=== PATIENT | female | born 1985 | race Caucasian/White ===

== ENCOUNTER → 2017-01-09 | Outpatient (CLI) | payer BC ==
--- NOTE | 2017-01-09 09:18 | DIAGNOSTIC IMAGING REPORT ---
BILIARY ULTRASOUND CLINICAL HISTORY: Right upper quadrant abdominal pain COMPARISON STUDY: No previous studies for comparison. FINDINGS: The pancreas appears sonographically normal. The liver appears sonographically normal. The gallbladder appears sonographically normal. There is no ductal dilatation. The common bile duct measures 4 mm. There is no right-sided hydronephrosis. IMPRESSION: Normal biliary ultrasound. Electronically signed by: Luis Carlos Pham M.D. 01/09/2017 9:16 AM Dictated Date/Time: 01/09/2017 9:15 AM
== END | disposition home or self-care (01) ==
LOC: C.ULTR 08:32
PROVIDERS: ATTEND Family Medicine
DX: R10.11 Right upper quadrant pain (principal)

== ENCOUNTER → 2017-06-17 | Outpatient (CLI) | payer BC ==
--- NOTE | 2017-06-17 15:35 | DIAGNOSTIC IMAGING REPORT ---
ABDOMEN LIMITED (US) CLINICAL HISTORY: 32 years-old Female presenting with RIGHT LOWER QUADRANT PAIN. TECHNIQUE: Real-time grayscale and limited color Doppler ultrasound imaging of the right lower quadrant was performed to evaluate the appendix. COMPARISON: None. FINDINGS: Appendix not visualized. No free fluid or hyperechogenic fat to suggest secondary signs of inflammation. IMPRESSION: Appendix not visualized, although no secondary signs of inflammation. This does not exclude the diagnosis of appendicitis. Electronically signed by: Riley Whitmore M.D. 06/17/2017 3:34 PM Dictated Date/Time: 06/17/2017 3:33 PM
== END | disposition home or self-care (01) ==
LOC: C.ULTR 15:11
PROVIDERS: ATTEND Family Medicine
DX: R10.31 Right lower quadrant pain (principal)

== ENCOUNTER → 2017-06-17 | Outpatient (CLI) | payer BC ==
[~2017-06-17] MED LIST: OPTIRAY 320 IV PRN
--- NOTE | 2017-06-17 20:15 | DIAGNOSTIC IMAGING REPORT ---
ABD/PELVIS IV AND ORAL CONT CT DOSE: 525.27 mGy.cm HISTORY: Right flank pain RLQ PAIN TECHNIQUE: Multiaxial CT images of the abdomen and pelvis were performed following the use of intravenous and oral contrast. COMPARISON STUDY: None. FINDINGS: The lung bases are clear. The liver, spleen, gallbladder, pancreas, kidneys, and adrenal glands are within normal limits. No bowel wall thickening or obstruction. The pelvic organs are unremarkable. No suspicious lytic or blastic osseous lesions. The appendix is normal. Nonobstructive bowel pattern. No free fluid within the pelvic cul-de-sac. IMPRESSION: No significant abnormality identified within the abdomen or pelvis. The above report was generated using voice recognition software. It may contain grammatical, syntax or spelling errors. Electronically signed by: Raúl Valencia M.D. 06/17/2017 8:05 PM Dictated Date/Time: 06/17/2017 8:03 PM
== END | disposition home or self-care (01) ==
LOC: C.CTS 17:25
PROVIDERS: ATTEND Family Medicine
DX: R10.31 Right lower quadrant pain (principal)

== ENCOUNTER 2018-04-17 20:35 | Emergency (ER) | payer BC, OTHER ==
[~2018-04-17] VITALS: Ht 160 cm; Wt 79.6 kg
[2018-04-17 20:51] VITALS: TEMP 36.8; Ht 160 cm; Wt 79.6 kg
[2018-04-17 21:18] LABS: BASO % 0.3 %; BASO ABS # 0.02 K/uL (0-0.2); EOS % 1.1 %; EOS ABS # 0.08 K/uL (0-0.5); HEMATOCRIT 40.6 % (37-47); HEMOGLOBIN 13.6 g/dL (12.0-16.0); IG# 0.02 K/uL (0.00-0.02); LYMPH % 43.4 %; LYMPH ABS # 3.24 K/uL (1.2-3.4); MEAN CELL VOLUME 87.3 fL (80-100); MEAN CORPUSCULAR HEMOGLOBIN 29.2 pg (25-34); MEAN CORPUSCULAR HGB CONC 33.5 g/dl (32-36); MEAN PLATELET VOLUME 10.9 fL (7.4-10.4); MONO ABS # 0.37 K/uL (0.11-0.59); NEUT % 49.9 %; NEUT ABS # 3.74 K/uL (1.4-6.5); PLATELET COUNT 257 K/uL (130-400); RED CELL DISTRIBUTION WIDTH CV 13.4 % (11.5-14.5); RED CELL DISTRIBUTION WIDTH SD 42.8 fL (36.4-46.3); WHITE BLOOD COUNT 7.47 K/uL (4.8-10.8)
[2018-04-17 21:41] LABS: ALBUMIN 3.5 gm/dl (3.4-5.0); CALCIUM 8.2 mg/dl (8.5-10.1); CREATININE 0.83 mg/dl (0.60-1.20); POTASSIUM 3.6 mmol/L (3.5-5.1)
[2018-04-17 21:46] LABS: TOTAL PROTEIN 7.4 gm/dl (6.4-8.2)
--- NOTE | 2018-04-17 22:01 | DIAGNOSTIC IMAGING REPORT ---
EXAMINATION: PELVIC ULTRASOUND (transabdominal and endovaginal scanning) CLINICAL HISTORY: RLQ pain COMPARISON STUDY: CT scan dated 06/17/2017 FINDINGS: The uterus measured 6.6 x 3.3 x 4.1 cm. The endometrial stripe measured 5 mm. The right ovary measured 23 x 22 x 22 mm. The left ovary measured 25 x 16 x 21 mm. There is no ultrasonographic evidence of ovarian torsion. It should be noted that ovarian torsion can be present with normal Doppler ultrasonographic findings. There was no evidence of pathologic free pelvic fluid. IMPRESSION: Normal pelvic ultrasound. Electronically signed by: Luis Carlos Pham M.D. 04/17/2018 10:00 PM Dictated Date/Time: 04/17/2018 9:59 PM
[2018-04-17 22:25] VITALS: BP 125/79; PULSE 65; O2SAT 98
--- NOTE | 2018-04-17 22:26 | EMERGENCY ROOM VISIT NOTE ---
History First contact with patient: 20:50 Chief Complaint: ABDOMINAL PAIN Stated Complaint: RIGHT LOWER AB AND BACK PAIN Nursing Triage Summary: Pt complains of right lower abdominal pain and diarrhea. History of Present Illness The patient is a 32 year old female who presents to the Emergency Room with complaints of abdominal pain. The patient reports that 2 nights ago, she was sitting at home and had 3 severe, sharp pains in her right lower abdomen. She states that the pain improved at that time. She states that today while she was eating dinner, she had a similar episode. She states that again, she had 3 sharp pains in her right lower abdomen. She has had a few intermittent pain since then. She reports the pain lasts for a few seconds at a time. There is no constant pain. The patient does note she is slightly gassy today and has been burping more than usual. This started after she was at an [place] wedding and has spicy [place] food for dinner. She states she has had loose stools this entire week. She states that when she has the abdominal pain, she rates it a 7- 8/10. Her last menstrual period was approximately 11 days ago. Her menstrual periods are typically regular. She reports she is currently trying to get . She did have a pelvic ultrasound a few months ago because she is having difficulty getting . She denies history of abdominal surgeries. She denies any urinary symptoms, nausea/vomiting, blood in her stools or fevers. Review of Systems A complete 10 point review of systems was reviewed with the patient with pertinent positives and negatives as per history of present illness. All else were negative. Past Medical/Surgical History Medical Problems: (1) No significant active problems Surgical Problems: (1) No significant past surgical history Social History Smoking Status: Never Smoker Marital Status: Housing Status: lives with family Physical Exam Vital Signs Date Time Temp Pulse Resp B/P (MAP) Pulse Ox O2 Delivery O2 Flow Rate FiO2 04/17/18 22:25 65 16 125/79 98 Room Air 04/17/18 21:57 70 16 113/79 98 Room Air 04/17/18 20:51 36.8 76 20 143/90 99 Room Air Physical Exam VITALS: Vitals are noted on the nurse's note and reviewed by myself. Vital signs stable. GENERAL: This is a 32-year-old female, in no acute distress, nondiaphoretic, well-developed well-nourished. SKIN: The skin was without rashes. HEART: Regular rate and rhythm without murmurs gallops or rubs. LUNGS: Clear to auscultation bilaterally without wheezes, rales or rhonchi. ABDOMEN: Positive bowel sounds x 4. Soft, minimal tenderness to palpation in the right lower quadrant. No guarding or rebound tenderness. NEURO: Patient was alert and oriented to person place and time. Medical Decision & Procedures ER Provider Diagnostic Interpretation: EXAMINATION: PELVIC ULTRASOUND (transabdominal and endovaginal scanning) CLINICAL HISTORY: RLQ pain COMPARISON STUDY: CT scan dated 06/17/2017 FINDINGS: The uterus measured 6.6 x 3.3 x 4.1 cm. The endometrial stripe measured 5 mm. The right ovary measured 23 x 22 x 22 mm. The left ovary measured 25 x 16 x 21 mm. There is no ultrasonographic evidence of ovarian torsion. It should be noted that ovarian torsion can be present with normal Doppler ultrasonographic findings. There was no evidence of pathologic free pelvic fluid. IMPRESSION: Normal pelvic ultrasound. Laboratory Results 04/17/18 21:10 Red Blood Count 4.65, Mean Corpuscular Volume 87.3, Mean Corpuscular Hemoglobin 29.2, Mean Corpuscular Hemoglobin Concent 33.5, Mean Platelet Volume 10.9, Neutrophils (%) (Auto) 49.9, Lymphocytes (%) (Auto) 43.4, Monocytes (%) (Auto) 5.0, Eosinophils (%) (Auto) 1.1, Basophils (%) (Auto) 0.3, Neutrophils # (Auto) 3.74, Lymphocytes # (Auto) 3.24, Monocytes # (Auto) 0.37, Eosinophils # (Auto) 0.08, Basophils # (Auto) 0.02 04/17/18 21:10 Test 04/17/18 21:06 04/17/18 21:10 Urine Test NEG (NEG) White Blood Count 7.47 K/uL (4.8-10.8) Red Blood Count 4.65 M/uL (4.2-5.4) Hemoglobin 13.6 g/dL (12.0-16.0) Hematocrit 40.6 % (37-47) Mean Corpuscular Volume 87.3 fL (80-100) Mean Corpuscular Hemoglobin 29.2 pg (25-34) Mean Corpuscular Hemoglobin Concent 33.5 g/dl (32-36) Platelet Count 257 K/uL (130-400) Mean Platelet Volume 10.9 fL (7.4-10.4) Neutrophils (%) (Auto) 49.9 % Lymphocytes (%) (Auto) 43.4 % Monocytes (%) (Auto) 5.0 % Eosinophils (%) (Auto) 1.1 % Basophils (%) (Auto) 0.3 % Neutrophils # (Auto) 3.74 K/uL (1.4-6.5) Lymphocytes # (Auto) 3.24 K/uL (1.2-3.4) Monocytes # (Auto) 0.37 K/uL (0.11-0.59) Eosinophils # (Auto) 0.08 K/uL (0-0.5) Basophils # (Auto) 0.02 K/uL (0-0.2) RDW Standard Deviation 42.8 fL (36.4-46.3) RDW Coefficient of Variation 13.4 % (11.5-14.5) Immature Granulocyte % (Auto) 0.3 % Immature Granulocyte # (Auto) 0.02 K/uL (0.00-0.02) Urine Color YELLOW Urine Appearance CLEAR (CLEAR) Urine pH 6.5 (4.5-7.5) Urine Specific [place] 1.018 (1.000-1.030) Urine Protein NEG (NEG) Urine Glucose (UA) NEG (NEG) Urine Ketones NEG (NEG) Urine Occult Blood NEG (NEG) Urine Nitrite NEG (NEG) Urine Bilirubin NEG (NEG) Urine Urobilinogen NEG (NEG) Urine Leukocyte Esterase TRACE (NEG) Urine WBC (Auto) 1-5 /hpf (0-5) Urine RBC (Auto) 0-4 /hpf (0-4) Urine Hyaline Casts (Auto) 0 /lpf (0-5) Urine Epithelial Cells (Auto) 10-20 /lpf (0-5) Urine Bacteria (Auto) NEG (NEG) Anion Gap 6.0 mmol/L (3-11) Est Creatinine Clear Calc Drug Dose 95.4 ml/min Estimated GFR () 106.6 Estimated GFR (Non- 92.0 BUN/Creatinine Ratio 16.0 (10-20) Calcium Level 8.2 mg/dl (8.5-10.1) Total Bilirubin 0.3 mg/dl (0.2-1) Aspartate Amino Transf (AST/SGOT) 20 U/L (15-37) Alanine Aminotransferase (ALT/SGPT) 21 U/L (12-78) Alkaline Phosphatase 78 U/L (45-117) Total Protein 7.4 gm/dl (6.4-8.2) Albumin 3.5 gm/dl (3.4-5.0) Globulin 3.9 gm/dl (2.5-4.0) Albumin/Globulin Ratio 0.9 (0.9-2) Chemistry Specimen Hemolysis Medical Decision Differential diagnosis includes ovarian cyst, ovarian torsion, mittelschmerz, appendicitis, UTI, gastroenteritis, kidney stone, among others. The patient is a 32-year-old female who presents today complaining of intermittent right lower quadrant abdominal pain. Labs revealed no leukocytosis , anemia or concerning electrolyte abnormalities. Urinalysis was not suggestive of infection. Urine was negative. Pelvic ultrasound was performed and read by radiology with no acute abnormalities. Patient may be having ovulatory pain. She has not had constant pain and there is nothing to suggest an infectious process for her symptoms. She does report she has had some belching and gassiness tonight, although I suspect this is likely secondary to the food that she ate this evening. She was advised to follow-up with her PCP Thursday or Thursday for a recheck. She verbalized understanding of my assessment and treatment plan. The patient's case was reviewed with Dr. Cox, ED attending physician, who agreed with my assessment and treatment plan. Based on the patient's presentation and work up, I feel the patient is stable for outpatient treatment. The patient was educated to return to the emergency department for any worsening of their current condition or new/concerning symptoms. She will follow up with her PCP. Medication Reconcilliation Current Medication List: was personally reviewed by me Blood Pressure Screening Patient's blood pressure: Normal blood pressure Impression Primary Impression: Right lower quadrant abdominal pain Departure Information Dispostion Home / Self-Care Condition GOOD Referrals Merissa Rodriguez M.D. (PCP) Patient Instructions My [facility] Additional Instructions You have been treated in the Emergency Department for your Abdominal Pain. Laboratory results and imaging studies have ruled out any emergent causes for your abdominal pain which would warrant admission or surgery. For pain control, you can use the following [id number] medicines (if >12 yo): - Regular strength (325mg/tab) Tylenol (acetaminophen) 2 tabs every 4-6 hours as needed. Do not exceed 12 tablets in a 24 hour period. Avoid taking more than 4 grams (4000 mg) of Tylenol per day. This includes any other sources of acetaminophen you may take on a regular basis. - Regular strength (200 mg/tab) Advil (ibuprofen) 1-2 tabs every 4-6 hours as needed. Do not exceed a dose of 3200 mg per day. Drink plenty of water and stay well hydrated. As with any trip to the Emergency Department, you should follow-up with your Primary Care Provider from today's visit. Return to the emergency department if your symptoms persist despite treatment plan outlined above or if the following symptoms occur: Worsening pain, vomiting , fevers or any other new/concerning symptoms.
== END 2018-04-17 22:30 | disposition home or self-care (01) ==
LOC: C.EDB 20:37 → C.EDC 22:30
DX: R10.31 Right lower quadrant pain (principal)